=== PATIENT | female | born 1940 | race Caucasian/White ===

== ENCOUNTER → 2017-08-03 | Outpatient (CLI) | payer OTHER, MEDICARE | LOC: FIMAGING 09:33 | PROVIDERS: ATTEND Internal Medicine | DX: Z12.31 Encounter for screening mammogram for malignant neoplasm of breast (principal); I65.21 Occlusion and stenosis of right carotid artery | CPT/HCPCS: G0202 ==

== ENCOUNTER → 2017-09-07 | Outpatient (CLI) | payer OTHER, MEDICARE | LOC: FIMAGING 10:15 | PROVIDERS: ATTEND Internal Medicine | DX: Z13.820 Encounter for screening for osteoporosis (principal); M85.80 Other specified disorders of bone density and structure, unspecified site; Z78.0 Asymptomatic menopausal state ==

== ENCOUNTER → 2018-01-31 | Outpatient (CLI) | payer OTHER, MEDICARE ==
[~2018-01-31] MED LIST: IOPAMIDOL (ISOVUE 370) 100 ML BTL IV ONE
== END ==
LOC: FIMAGING 12:48
DX: I65.23 Occlusion and stenosis of bilateral carotid arteries (principal); I77.1 Stricture of artery
CPT/HCPCS: 70498; Q9967; 82565-PO

== ENCOUNTER → 2018-04-19 | Outpatient (CLI) | payer OTHER, MEDICARE | LOC: FIMAGING 16:37 | DX: I65.21 Occlusion and stenosis of right carotid artery (principal); Z95.828 Presence of other vascular implants and grafts ==

== ENCOUNTER 2018-12-05 07:58 | Day surgery (SDC) | payer OTHER, MEDICARE ==
[2018-12-05] MEDS ORDERED: NS 1,000 ML IV ONE (08:03)
[2018-12-05] MEDS ORDERED: diphenhydrAMINE 25 MG CAP PO ONE (08:03)
[2018-12-05] MEDS ORDERED: DIAZEPAM 5 MG TAB PO ONE (08:03)
[2018-12-05] MEDS ORDERED: ASPIRIN EC 325 MG TAB PO ONE (08:03)
[2018-12-05] MEDS ORDERED: FAMOTIDINE 20 MG TAB PO ONE (08:03)
[2018-12-05 08:39] LABS: PLATELET COUNT 212 10^3/uL (150-400)
[2018-12-05 09:10] LABS: INR 0.9 (0.83-1.16); PROTIME(PATIENT) 11.8 SEC (12.0-15.0)
[2018-12-05] MEDS ORDERED: LIDOCAINE 1% 300 MG/30 ML SDV ONE (09:35)
[2018-12-05] MEDS ORDERED: fentaNYL 100 MCG/2 ML INJ ONE (09:36)
[2018-12-05] MEDS ORDERED: MIDAZOLAM 2 MG/2 ML VIAL ONE (09:36)
[2018-12-05] MEDS ORDERED: IOPAMIDOL (ISOVUE-370) 150 ML BTL IV ONE (09:36)
--- NOTE | 2018-12-05 09:53 | PDPROPOC ---
Sedation Plan of Care Sedation Plan of Care: mental status noted, patient educated of risks, benefits , alternatives, patient can tolerate sedation ASA Classification: ASA 2 Planned drugs: fentanyl, midazolam Mallampati Score: Class 2 Mallampati Reference Image: Patient passed 3-3-2 rule?: Yes
--- NOTE | 2018-12-05 09:53 | PDHPUP ---
History & Physical Update H&P update statement: This history and physical update is based on an assessment of the patient which was completed after admission or registration (within 24 hours), but prior to the surgery/procedure. Pt with known history of carotid disease, hypertension, hyperlipidemia and smoking history with SOB and MORALES with abnormal nuclear stress test with symptoms of sob and fatigue, limiting exercise to 6 min on Lopez protocol with evidence of inferior ischemia. Risks and benefits discussed in detail. Pt agreeable to pursue. Consents signed for heart catheterization and PCI if needed. H&P update: H&P reviewed & patient examined, no change in patient's condition since H&P completed
[2018-12-05] MEDS ORDERED: OXYCODONE/APAP 5/325 TAB PO PRN (11:13)
[2018-12-05] MEDS ORDERED: ATROPINE SULFATE 1 MG/10 ML SYR IVP PRN (11:13)
[2018-12-05] MEDS ORDERED: HYDROCODONE/APAP 5/325 TAB PO PRN (11:13)
[2018-12-05] MEDS ORDERED: NITROGLYCERIN 0.4 MG BTL SL PRN (11:13)
[2018-12-05] MEDS ORDERED: ONDANSETRON 4 MG/2 ML VIAL IVP PRN (11:13)
--- NOTE | 2018-12-05 11:52 | CPIP ---
[f rep st] INVASIVE CARDIAC PROCEDURE DATE OF PROCEDURE: 12/05/2018 PROCEDURE PERFORMED: Left heart catheterization. INDICATION FOR PROCEDURE: Patient with complaints of shortness of breath and dyspnea on exertion cou pled with multiple coronary artery disease risk factors, including bilateral carotid artery disease w ith history of internal carotid stent to the left carotid in March 2018. Patient also underwent exe rcise nuclear stress test. Study was discontinued at 80% of maximum predicted heart rate secondary t o symptoms of dyspnea and fatigue. Nuclear imaging demonstrated inferior wall ischemia. PROCEDURE: After informed consent was obtained for both left heart catheterization, as well as possi ble percutaneous coronary intervention, as well as sedation, patient was brought to the cardiac wendy terization lab where she was prepped and draped in sterile fashion. Using 1% lidocaine, the right gr oin was anesthetized. Using modified Seldinger technique, 6-[place] catheter was placed into the [facility] t common femoral artery without complication. JL4 catheter was used to take images of the left coron matt anatomy in multiple projections. JL4 catheter was exchanged over a guidewire for JR4 catheter. JR4 catheter was used to take images of the right coronary artery in multiple projections. JR4 wendy ter was exchanged over a guidewire for an angled pigtail catheter. Attempts to cross the aortic valv e were unsuccessful, and pigtail catheter was removed over guidewire. Right common femoral artery an giography demonstrated no evidence of trauma to the right common femoral vessel. Angio-Seal was depl oyed successfully without complication. FINDINGS: 1. Left main: Normal size and caliber, trifurcates into a left anterior descending ramus branch and circumflex coronary artery. There was no evidence of coronary disease within the left main. 2. Left anterior descending artery is normal with no evidence of coronary disease. There is a moder ate 1st diagonal branch with no evidence of coronary disease. 3. Circumflex vessel is a nondominant vessel. There is no evidence of coronary disease within the c ircumflex vessel. 4. Ramus branch is a moderate-caliber vessel with no evidence of coronary disease. 5. The right coronary artery is a dominant vessel. There is no evidence of coronary disease within the right coronary artery. Attempts to cross the aortic valve were unsuccessful. Catheter was removed without complications. R ight common femoral artery angiography demonstrated sheath placement at the level of the inguinal lig ament. No evidence of trauma to the vessel. Successful Angio-Seal deployment. FINDINGS: Normal coronary arteries. Symptoms may represent underlying lung disease in the setting o f a history of smoking. Will continue current medical therapy. /[id number]/MODL
--- NOTE | 2018-12-06 10:25 | CPEKG ---
Test Reason : OPEN Blood Pressure : / mmHG Vent. Rate : 058 BPM Atrial Rate : 058 BPM P-R Int : 162 ms QRS Dur : 080 ms QT Int : 451 ms P-R-T Axes : 061 -31 051 degrees QTc Int : 444 ms Sinus rhythm Probable left atrial enlargement Left axis deviation Confirmed by Wilfred Pride ([id number]) on 12/06/2018 10:24:49 AM Referred By: Ruddy Kearney Confirmed By:Wilfred Pride
== END 2018-12-05 17:31 | disposition home or self-care (01) ==
LOC: FCATH 07:58
PROVIDERS: ATTEND Internal Medicine Cardiovascular Disease
PROC: B2151ZZ Fluoroscopy of Left Heart using Low Osmolar Contrast (ICD-10-PCS; principal; 2018-12-05)
PROC: 4A023N7 Measurement of Cardiac Sampling and Pressure, Left Heart, Percutaneous Approach (ICD-10-PCS; principal; 2018-12-05)
PROC: B2111ZZ Fluoroscopy of Multiple Coronary Arteries using Low Osmolar Contrast (ICD-10-PCS; principal; 2018-12-05)
DX: R94.39 Abnormal result of other cardiovascular function study (principal); R53.83 Other fatigue; R06.09 Other forms of dyspnea; I35.0 Nonrheumatic aortic (valve) stenosis; Q25.48 Anomalous origin of subclavian artery; I77.9 Disorder of arteries and arterioles, unspecified; I10 Essential (primary) hypertension; E78.2 Mixed hyperlipidemia; Z87.891 Personal history of nicotine dependence
CPT/HCPCS: C1760; J1644; J2250; J3010; Q9967